=== PATIENT | female | born 1995 | race Caucasian/White ===

== ENCOUNTER 2019-09-11 06:46 | Inpatient (IN) ==
[~2019-09-11 06:46] MED LIST: D5 1/2 NS 1000 ML 1,000 ML IV ONE; D5LR 1L W PITOCIN 10 UNITS/L 10 UNITS/1,000 ML BAG IV ONE
[2019-09-11] MEDS ORDERED: MORPHINE SULFATE INJ 2 MG INJ IVP PRN (06:54)
[2019-09-11] MEDS ORDERED: REGLAN INJ 10 MG VIAL IVP PRN (06:54)
[2019-09-11] MEDS ORDERED: NUBAIN INJ 200 MG VIAL MULTIDOSE IVP PRN (06:54)
[2019-09-11] MEDS ORDERED: D5LR 1L W PITOCIN 10 UNITS/L 10 UNITS/1,000 ML BAG IV PRN (06:54)
[2019-09-11] MEDS ORDERED: PHENERGAN INJ 25 MG IM PRN ×2 (06:54→17:58)
[2019-09-11] MEDS ORDERED: PITOCIN IVP ONE (06:54)
--- NOTE | 2019-09-11 07:23 | DR.OB ---
OB Quick Note - Assessment/Plan Assessment/Plan: L&D 09/11/19 at 7:10am S-No complaint. O-Afebrile,VSS MCA=939 with good LTV, +accel, no decel. CTX=none CVX=1cm/50%/-1/VTX AROM with clear fluid. IUPC and FSE placed. A-IUP at 38 6/7 weeks for induction P-Begin pitocin induction Anticipate
[2019-09-11] MEDS: D5 1/2 NS 1000 ML 1,000 ML IV SCH ×2 (08:28→16:15)
[2019-09-11] MEDS ORDERED: FENTANYL INJ 100 mcg ONE (09:24)
[2019-09-11] MEDS ORDERED: NAROPIN EPIDURAL 0.2% + FENTANYL 90MCG 60 ML EPI ONE ×2 (09:24→15:53)
[2019-09-11] MEDS ORDERED: PITOCIN ONE (09:24)
[2019-09-11] MEDS ORDERED: LR 1000 ML IV 1,000 ML IV ONE (09:25)
[2019-09-11] MEDS ORDERED: D5 1/2 NS 1L W PITOCIN 20 UNITS/L 20 UNITS/1,000 ML BAG IV ONE (09:25)
[2019-09-11] MEDS ORDERED: REGLAN INJ 10 MG VIAL ONE (11:24)
--- NOTE | 2019-09-11 11:47 | DR.OB ---
OB Quick Note - Assessment/Plan Assessment/Plan: L&D 09/11/19 at 11:40am Pitocin=13mu/min. S-No complaint. s/p epidural. O-Afebrile,VSS BXS=826 with good LTV, +accel, no decel. CTX=q 1 1/2 min., about 45-65mmHg CVX=3cm/50%/-1 A-IUP at 38 6/7 weeks for induction P-Cont. pitocin induction Anticipate
--- NOTE | 2019-09-11 16:45 | DR.OB ---
OB Quick Note - Assessment/Plan Assessment/Plan: L&D 09/11/19 at 4:35pm Pitocin=10mu/min. S-No complaints. O-Afebrile,VSS EEY=053 with good LTV, +accel, no decel. CTX=q 1 1/2 to 2 1/2 min., about 55-65mmHg CVX=7cm/100%/0 A-IUP at 38 6/7 weeks for induction P-Cont. pitocin induction Anticipate
--- NOTE | 2019-09-11 17:58 | DR.OB ---
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 Head delivered over intact perineum. Nuchal cord x 1 reduced. Nose and mouth bulb suctioned. Body delivered over intact perineum. Cord clamped x 2 and cut. Infant handed to attendant. Cord sent for gases. Placenta delivered spontaneously / intact / 3 vessel cord. No CVX / vaginal / perineal tears. Viable female infant, VTX/OA, wt=6'13" and 9/9, stable to NBN. Mother stable to RR. MBU=[id number].
[2019-09-11] MEDS ORDERED: MILK OF MAGNESIA PO PRN (18:40)
[2019-09-11] MEDS ORDERED: DERMOPLAST SPRAY TOP PRN (18:40)
[2019-09-11] MEDS ORDERED: ADACEL or BOOSTRIX TDaP VACCINE IM ONE (18:40)
[2019-09-11] MEDS ORDERED: AMBIEN PO PRN (18:40)
[2019-09-11] MEDS: D5 1/2 NS 1000 ML 1,000 ML with PITOCIN 20 UNITS IV SCH ×2 (18:55)
[2019-09-11] MEDS: ZANTAC PO SCH (20:26)
[2019-09-11] MEDS: MOTRIN TAB 800 MG PO PRN (21:00)
[2019-09-12] MEDS: D5 1/2 NS 1000 ML 1,000 ML with PITOCIN 20 UNITS IV SCH ×2 (04:11)
[2019-09-12 05:31] LABS: HEMATOCRIT 35.5 % (36.0-47.0); HEMOGLOBIN 11.8 g/dL (12.0-16.0)
[2019-09-12] MEDS ORDERED: AFLURIA II4 or FLUARIX II4 IM ONE (08:07)
[2019-09-12] MEDS: PRENATAL PLUS PO SCH (09:56)
[2019-09-12] MEDS: ZANTAC PO SCH ×2 (09:56→20:13)
[2019-09-12] MEDS: MOTRIN TAB 800 MG PO PRN ×2 (10:00→20:13)
[2019-09-12] MEDS: NICOTINE PATCH TD SCH (16:49)
[2019-09-13] MEDS: MOTRIN TAB 800 MG PO PRN (08:39)
[2019-09-13] MEDS: PRENATAL PLUS PO SCH (08:40)
[2019-09-13] MEDS: ZANTAC PO SCH (08:40)
[2019-09-13] MEDS: NICOTINE PATCH TD SCH (08:41)
[2019-09-13 12:43] VITALS: BP 127/75
[2019-09-13] MEDS ORDERED: AFLURIA II4 or FLUARIX II4 IM ONE ×2 (13:14→13:17)
== END 2019-09-13 13:40 | disposition home or self-care (01) | DRG 807 ==
LOC: LD 06:46 → MED/SURG 18:42
PROVIDERS: ADMIT Specialist; ATTEND Specialist
DX: Z01.812 Encounter for preprocedural laboratory examination; O80 Encounter for full-term uncomplicated delivery; Z3A.38 38 weeks gestation of pregnancy; Z37.0 Single live birth; Z23 Encounter for immunization; Z01.818 Encounter for other preprocedural examination
CPT/HCPCS: 36415; 59409; 80048; 80307; 81001; 85014; 85018; 85025; 86592; 86850; 86900; 86901; 90674; 90686; 90715; A4216; A4222; S0197; G0434; J2590; J2765; J3010; J7120; S5010